=== PATIENT | male | born 1985 | race Two or more races ===

== ENCOUNTER 2022-10-25 16:56 | Emergency (ER) | payer MEDICAID, OTHER ==
[~2022-10-25] VITALS: Ht 170.2 cm; Wt 79.3 kg
[2022-10-25] MEDS ORDERED: CEPH-510 PO (22:09)
[2022-10-25 23:47] VITALS: BP 134/87
== END 2022-10-26 00:45 | disposition home or self-care (01) ==
LOC: ER 16:56
DX: S61.201A Unspecified open wound of left index finger without damage to nail, initial encounter (principal); X58.XXXA Exposure to other specified factors, initial encounter; Y93.E9 Activity, other interior property and clothing maintenance; Y92.89 Other specified places as the place of occurrence of the external cause; Y99.8 Other external cause status